=== PATIENT | female | born 1945 | race Caucasian/White ===

== ENCOUNTER 2018-11-26 05:37 | Observation (INO) | payer MEDICARE ==
[~2018-11-26 05:37] MED LIST: Buffered Lidocaine 1% SYRIN* 1 ML/SYRINGE INTRADERM ONE
[2018-11-26] MEDS ORDERED: Famotidine IV* 10 MG/ML 2 ML (20 mg) IV ONE (06:00)
[2018-11-26] MEDS ORDERED: Lactated Ringers 1000 ML Bag* 1,000 ML IV SCH (06:00)
[2018-11-26] MEDS ORDERED: Dexamethasone IV* 4 MG/ML 1 ML (4 MG) IV SLOW PU ONE (06:00)
[2018-11-26] MEDS ORDERED: Buffered Lidocaine 1% SYRIN* 1 ML/SYRINGE INTRADERM ONE (06:14)
[2018-11-26] MEDS ORDERED: Dexamethasone IV* 4 MG/ML 1 ML (4 MG) ONE (06:40)
[2018-11-26] MEDS ORDERED: Famotidine IV* 10 MG/ML 2 ML (20 mg) ONE (06:40)
[2018-11-26] MEDS ORDERED: ceFAZolin 2 GM PREMIX in ORs 2 GM/50 ML BAG ONE (06:40)
[2018-11-26] MEDS ORDERED: Lidocaine 2% PF * 5 ML VIAL ONE (07:05)
[2018-11-26] MEDS ORDERED: Propofol* 10 MG/ML 20 ML BTL ONE (07:05)
[2018-11-26] MEDS ORDERED: Midazolam* 1 MG/ML 2 ML VIAL (2 MG) ONE (07:05)
[2018-11-26] MEDS ORDERED: fentaNYL* 50 MCG/ML 2 ML VIAL (100 MCG VIAL) ONE ×4 (07:06→13:16)
[2018-11-26] MEDS ORDERED: DiMENhydriNATE IV* 50 MG/ML VIAL IV PUSH PRN (07:35)
[2018-11-26] MEDS ORDERED: Naloxone* 0.4 MG/ML 1 ML VIAL IV PRN (07:35)
[2018-11-26] MEDS ORDERED: oxyCODONE/Acetamin 5/325 MG* TAB PO PRN (07:35)
[2018-11-26] MEDS ORDERED: HYDROcodone/ACETAMIN 5-325 MG* 1 TAB PO PRN (07:35)
[2018-11-26] MEDS ORDERED: EPHEDrine (Pressors)* 50 MG/ML VIAL ONE (07:49)
[2018-11-26] MEDS ORDERED: Phenylephrine 40 MCG/ML SYRINGE ONE (07:56)
[2018-11-26] MEDS ORDERED: Lidocaine 1% w EPI 1:100,000* 30 ML VIAL ONE (09:40)
[2018-11-26] MEDS ORDERED: Bupivacaine 0.25% SDV PF* 10 ML VIAL INJ ONE (09:41)
[2018-11-26] MEDS ORDERED: Bupivacaine 0.5% W/EPI SDV* 30 ML VIAL ONE (09:41)
[2018-11-26] MEDS ORDERED: Ondansetron INJ* 2 MG/ML VIAL ONE (10:44)
[2018-11-26] MEDS: fentaNYL* 50 MCG/ML 2 ML VIAL (100 MCG VIAL) IV PRN ×4 (11:51→13:17)
[2018-11-26] MEDS ORDERED: traMADol TAB* 50 MG PO PRN (11:57)
[2018-11-26] MEDS ORDERED: Ondansetron ODT TAB* 4 MG PO PRN (11:57)
[2018-11-26] MEDS ORDERED: Magnesium Hydroxide LIQ* 30 ML UDC PO PRN (11:57)
[2018-11-26] MEDS ORDERED: diPHENhydraMINE PO* 25 MG PO PRN (11:57)
[2018-11-26] MEDS ORDERED: HYDROcodone/ACETAMIN 5-325 MG* 1 TAB ONE (12:26)
--- NOTE | 2018-11-26 13:21 | OP ---
DATE OF OPERATION: 11/26/18 - ROOM #341 DATE OF : 43 SURGEON: Houston Santana MD ENROLLED NURSE: SABI Lopez. An escrow assistant was needed for the entirety of the procedure to aid in positioning of the arm and retraction. ANESTHESIOLOGIST: Dr. Modi. ANESTHESIA: General. 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 OPERATIVE PROCEDURE: 1. Right wrist arthrodesis with both femoral head allograft and iliac crest bone marrow aspirate utilizing Synthes distal radius fusion plate. 2. Removal of right wrist replacement. 3. Excision of distal ulna, right wrist. INDICATIONS: Candace had the wrist replacement put in a couple of decades ago. For the last while, it has been locked with the wrist in position of ulnar deviation and flexion. She really has no motion in the wrist. X-rays show complete erosion of the carpal plate up through the carpus and almost to the subchondral bone near the CMC joint. The radial component looks well fixed. Candace is looking to see if she can get her wrist straighter. Additionally, she has pretty significant wear at the distal ulna, it is very dysmorphic, it is impinging. I talked to her about just excising that as well. She does have rheumatoid arthritis. ESTIMATED BLOOD LOSS: 25 mL. COMPLICATIONS: None. FINDINGS: See above and below. DESCRIPTION OF PROCEDURE: Candace was seen in the preoperative holding area. The correct site, side, and procedures were identified. We came back to the operating room where the arm was prepped and draped in the usual fashion and a time-out was performed. The arm was exsanguinated with the Esmarch and the tourniquet was inflated to 225 mmHg. When we were draping, we had prepped out the iliac crest as well. After tourniquet was inflated, we reopened her prior longitudinal incision over the dorsal wrist. Dissection was carried down. Full thickness flaps were raised off the extensor retinaculum. The extensor retinaculum was opened over the fourth dorsal compartment. The subperiosteal dissection was used to release the fourth, fifth as well as third and second dorsal compartments. The EPL tendon had not been transposed. The tendons were all retracted out of the way. There was metallosis seen in the dorsal wrist capsule. The capsule was opened longitudinally. It took quite some time, but I was able to free up all of the soft tissue off the wrist prosthesis, but using the combination of a knife, rongeur, and the Bovie. The radial component was visualized. The distal component had all advanced up into the carpus and was not seen until I went ahead and nipped back a little rim of the dorsal carpus and I was able to see the poly in the carpal plate. I went ahead and circumferentially released the soft tissue around the proximal component off of the distal radius. The wrist was dislocated. I used the osteotomes, combination of flexible and nonflexible osteotomes to release the bone around the porous coated portion of the metaphyseal portion of the proximal component. This required some loss of the distal radius, but overall we were able to preserve most of it. It took quite some time, but we were able to get it loose and then the component came out uneventfully. After the proximal component came distally, I released the poly off the carpal plate. The two screws were then removed, they were loose. The carpal plate then came out until it was very loose. There was a lot of metallosis. I went ahead and excised all of the metallosis. I then was able to get it sent through the gap that I had. I used the kelsey to remove the very eburnated bone that had been adjacent to the carpal plate. Once I had nice cancellous bone there, I went ahead and brought in my femoral head allograft. I used the large oscillating saw to get the graft close to be in the right size. It was a T- shaped graft with a metaphyseal component proximally. It took quite some time, but once I had it contoured to the right size using a combination of the oscillating saw followed by the smaller sagittal saw and then the rongeur, I was able to impact the T-component of the graft down into the radius and the graft was very stable. I then placed some cancellous graft with a combination of autograft from the distal radius and carpus and then also some of the crushed up cancellous pieces from the femoral head, packed that next to the carpus distally, then I reduced the joint. It was a very nice fit. I brought in my Synthes distal radius fusion plate. I selected the straight plate. I bevelled off the portion of the third metacarpal proximally. I then bent the plate to match the alignment of the bone. Once I had the plate sitting nicely on the bone, I went ahead and decided to harvest some bone marrow. The bone marrow aspiration needle was introduced into the iliac crest in a standard location in the anterior third. I aspirated 10 mL of bone marrow. I irrigated out the wound copiously. I then placed my bone marrow around the graft on all sites and up into the fusion surfaces. An 18-gauge needle was used to assist with this. I then brought in my Synthes fusion plate and secured it with 3 screws distally on the third metacarpal. I then placed three screws proximally sequentially in compression fashion in the radius. This provided a lot of compression across the fusion site. I placed some locking screws proximally, most of the screws distally were locking screws. I brought in my C- arm. I got final fluoroscopic imaging. All the screws looked good. The plate position was good. I was very happy with the clinical alignment. I took what capsule I had dorsally and I closed it with some 4-0 PDS suture. It was in the lot as the wrist had been sitting in quite a distorted position, so when I straightened it out, there was not a lot of capsule left to work with. I did close the retinaculum over the extensor tendons, leaving the EPL tendon transposed. Subcutaneous tissue was reapproximated with 3-0 Vicryl. The skin was closed with 4-0 nylon. 0.25% Marcaine was infiltrated all about the wrist. The wound was dressed with Xeroform, 4x4, sterile Webril and then a wrist plate was applied with both palmar and dorsal slabs. The tourniquet had been deflated during the surgery while I harvested the bone marrow aspirate. It was then kept on through splint placement and then deflated after splint placement, both times the hand pinked up immediately. She was woken up and taken to the recovery room in stable condition. [id number]/CPS #: [id number] HEMAL
[2018-11-26] MEDS: Acetaminophen TAB* 325 MG PO SCH ×2 (14:47→22:15)
[2018-11-26] MEDS: ceFAZolin 2 GM PREMIX in ORs 2 GM/50 ML BAG IVPB SCH (17:20)
[2018-11-26] MEDS ORDERED: Atorvastatin* 40 MG TAB PO SCH (18:00)
[2018-11-26] MEDS: PROCHLORPERAZINE INJ 5 MG/ML 2 ML VIAL IV PRN (18:17)
[2018-11-26] MEDS: Flecainide TAB* 100 MG PO SCH (22:13)
[2018-11-26] MEDS: Gabapentin CAP(*) 300 MG PO SCH (22:13)
[2018-11-26] MEDS: Magnesium Hydroxide LIQ* 30 ML UDC PO SCH (22:14)
[2018-11-26] MEDS: Docusate CAP* 100 MG PO SCH (22:14)
[2018-11-26] MEDS: Metoprolol Succinate XL TAB* 25 MG PO SCH (22:15)
[2018-11-26] MEDS: Potassium Chlor TAB* 10 MEQ TAB.ER PO SCH (22:20)
[2018-11-27] MEDS: ceFAZolin 2 GM PREMIX in ORs 2 GM/50 ML BAG IVPB SCH ×3 (00:22→15:45)
[2018-11-27] MEDS: Acetaminophen TAB* 325 MG PO SCH ×3 (06:03→22:08)
[2018-11-27] MEDS: PROCHLORPERAZINE INJ 5 MG/ML 2 ML VIAL IV PRN ×2 (08:57→19:39)
[2018-11-27] MEDS ORDERED: Levothyroxine TAB* 88 MCG TAB PO SCH (09:00)
[2018-11-27] MEDS: Potassium Chlor TAB* 10 MEQ TAB.ER PO SCH ×2 (10:03→20:50)
[2018-11-27] MEDS: Pantoprazole TAB * 40 MG TAB PO SCH (10:03)
[2018-11-27] MEDS: Flecainide TAB* 100 MG PO SCH ×2 (10:03→20:50)
[2018-11-27] MEDS: Rivaroxaban TAB(*) 20 MG TAB PO SCH (10:03)
[2018-11-27] MEDS: Ferrous Sulfate TAB* 325 MG PO SCH (10:03)
[2018-11-27] MEDS: Torsemide TAB 10 MG PO SCH (10:04)
[2018-11-27] MEDS: Docusate CAP* 100 MG PO SCH ×2 (10:04→20:50)
[2018-11-27] MEDS: CMC: Leflunomide (NF) 10 MG TAB PO SCH (10:04)
[2018-11-27] MEDS: Magnesium Hydroxide LIQ* 30 ML UDC PO SCH ×2 (11:09→20:50)
--- NOTE | 2018-11-27 11:52 | PN ---
Progress Note - Progress Note Date of Service: 11/27/18 SOAP: Subjective: []Pt seen at bedside. She is comfortable at rest, has wrist pain with movement and requests a sling. Denies CP, SOB, dizziness, nausea. Objective: []General: NAD RUE: splint CDI. Able to flex and extend digits, sensation intact to light touch and capillary refill less than two seconds distally. BL LE calves supple and nontender Assessment: [] OPERATIVE PROCEDURE: 1. Right wrist arthrodesis with both femoral head allograft and iliac crest bone marrow aspirate utilizing Synthes distal radius fusion plate. 2. Removal of right wrist replacement. 3. Excision of distal ulna, right wrist. Plan: []NWB RUE Sling given for comfort Work with PT/OT Elevate hand to decrease edema Anticipate DC home tomorrow. Patient lives alone, right hand dominant. Pt is confident she will be able to complete ADLs independently, ensure independence with PT/OT before DC Vital Signs Temp 98.3 F 11/27/18 11:14 Pulse 77 11/27/18 11:14 Resp 18 11/27/18 11:14 BP 111/82 11/27/18 11:14 Pulse Ox 98 11/27/18 11:14 Intake & Output 11/26/18 11/27/18 11/27/18 18:59 06:59 18:59 Intake Total 1750 1080 80 Output Total 1100 700 Balance 650 380 80 Intake: IV Fluids 1550 30 LR 1500 NS 30 NS 50ML, Cefazolin 2G 50 IVPB 50 cefazolin 50 Oral 200 1080 Output: Urine 1100 700 Other: # Bowel Movements 0 Laboratory Last Values Blood Type O Positive 11/26/18 06:30 Antibody Screen Positive 11/26/18 06:30 Antibody Identification Anti-K 11/26/18 06:30 Direct Antiglob Test Negative 11/26/18 06:30 Vital Signs Temp 98.3 F 11/27/18 11:14 Pulse 77 11/27/18 11:14 Resp 18 11/27/18 11:14 BP 111/82 11/27/18 11:14 Pulse Ox 98 11/27/18 11:14 Intake & Output 11/26/18 11/27/18 11/27/18 18:59 06:59 18:59 Intake Total 1750 1080 80 Output Total 1100 700 Balance 650 380 80 Intake: IV Fluids 1550 30 LR 1500 NS 30 NS 50ML, Cefazolin 2G 50 IVPB 50 cefazolin 50 Oral 200 1080 Output: Urine 1100 700 Other: # Bowel Movements 0
--- NOTE | 2018-11-27 16:07 | PN ---
Progress Note - Progress Note Date of Service: 11/27/18 Note: pt was a cat call for an episode of near syncope after standing up on her post op knee for the first time. No LOC/CP/SOB. Neurologically intact. c/o pain in post op knee and left ankle. Exam: AAOx3, anxious, Resp: CTA B/l, CV: RRR no murmur, left post op knee in cryo, good b/l pedal pulses SBP initially at 68, then 98-pt was given 750 ml IVF bolus. GB at 170, EKG pending: A/P Vagal episode in pt post op. will check H&H and cont post op vitals
[2018-11-27] MEDS: Metoprolol Succinate XL TAB* 25 MG PO SCH (20:49)
[2018-11-27] MEDS: Gabapentin CAP(*) 300 MG PO SCH (20:49)
[2018-11-27] MEDS ORDERED: Atorvastatin* 40 MG TAB PO SCH (21:00)
[2018-11-28] MEDS: Acetaminophen TAB* 325 MG PO SCH ×2 (05:38→07:18)
[2018-11-28] MEDS ORDERED: Levothyroxine TAB* 88 MCG TAB PO SCH (06:00)
[2018-11-28] MEDS: Ferrous Sulfate TAB* 325 MG PO SCH (09:25)
[2018-11-28] MEDS: Pantoprazole TAB * 40 MG TAB PO SCH (09:25)
[2018-11-28] MEDS: Flecainide TAB* 100 MG PO SCH (09:25)
[2018-11-28] MEDS: Docusate CAP* 100 MG PO SCH (09:25)
[2018-11-28] MEDS: Rivaroxaban TAB(*) 20 MG TAB PO SCH (09:25)
[2018-11-28] MEDS: Torsemide TAB 10 MG PO SCH (09:25)
[2018-11-28] MEDS: Potassium Chlor TAB* 10 MEQ TAB.ER PO SCH (09:25)
[2018-11-28] MEDS: CMC: Leflunomide (NF) 10 MG TAB PO SCH (09:26)
[2018-11-28] MEDS: Magnesium Hydroxide LIQ* 30 ML UDC PO SCH (09:26)
--- NOTE | 2018-11-28 10:55 | PN ---
Progress Note - Progress Note Date of Service: 11/28/18 SOAP: Subjective: [] Pt seen at bedside. She feels well and desires DC home. She has met her goals with PT, she still needs work with OT. At home the patient fees she will be able to complete her ADLs independently but also confirms she has a life alert, two children to help at any time, a recovery engineer who can also help at any time. She confirms she will have help as much as is needed from friends and family. Denies CP, SOB, dizziness, nausea. RUE pain is much reduced from yesterday. Objective: [] General: NAD RUE: splint CDI. Able to flex and extend digits, weak and limited which she confirms is consistent with preop. sensation intact to light touch and capillary refill less than two seconds distally. BL LE calves supple and nontender Assessment: [] OPERATIVE PROCEDURE: 1. Right wrist arthrodesis with both femoral head allograft and iliac crest bone marrow aspirate utilizing Synthes distal radius fusion plate. 2. Removal of right wrist replacement. 3. Excision of distal ulna, right wrist. Plan: []NWB RUE Sling for comfort Work with PT/OT Elevate hand to decrease edema Anticipate DC home today with help from friends and family Vital Signs Temp 97.7 F 11/28/18 07:13 Pulse 71 11/28/18 07:13 Resp 20 11/28/18 07:38 BP 119/65 11/28/18 07:13 Pulse Ox 96 11/28/18 07:38 Intake & Output 11/27/18 11/28/18 11/28/18 18:59 06:59 18:59 Intake Total 930 900 Output Total 400 Balance 930 500 Intake: IV Fluids 80 NS 30 IVPB 50 cefazolin 50 Oral 800 900 Output: Urine 400 Other: Estimated Void Medium Medium # Voids 1 1 Laboratory Last Values Blood Type O Positive 11/26/18 06:30 Antibody Screen Positive 11/26/18 06:30 Antibody Identification Anti-K 11/26/18 06:30 Direct Antiglob Test Negative 11/26/18 06:30
--- NOTE | 2018-11-28 11:17 | DS ---
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 OPERATIVE PROCEDURE: 1. Right wrist arthrodesis with both femoral head allograft and iliac crest bone marrow aspirate utilizing Synthes distal radius fusion plate. 2. Removal of right wrist replacement. 3. Excision of distal ulna, right wrist. Disposition of Patient: [home ] Condition of Patient: stable History: RONY RIGGINS is a 72 year old F with failed right wrist arthroplasty. Patient elected to undergo a Right wrist arthrodesis with both femoral head allograft and iliac crest bone marrow aspirate utilizing Synthes distal radius fusion plate.2. Removal of right wrist replacement.3. Excision of distal ulna, right wrist. Hospital Course: RONY was admitted to [facility] on 11/26/18. Patient underwent a [ Right wrist arthrodesis with both femoral head allograft and iliac crest bone marrow aspirate utilizing Synthes distal radius fusion plate, Removal of right wrist replacement, Excision of distal ulna, right wrist. without complication followed by a brief recovery in PACU and transfer to the Short Stay Surgical Unit in stable condition. : POD 1 splint CDI. Able to flex and extend digits, weak and limited which she confirms is consistent with preop. sensation intact to light touch and capillary refill less than two seconds distally. POD 2 exam unchanged, deemed stable for discharge to home. Home Medications Medication Instructions Recorded Confirmed Type Ascorbic Acid [Vitamin C] 500 mg PO QAM 11/09/18 11/26/18 History Cholecalciferol (Vitamin D3) 2,000 unit PO QAM 11/09/18 11/26/18 History [Vitamin D3] Cyanocobalamin TAB* [Vitamin B12 1,000 mcg PO DAILY 11/09/18 11/26/18 History TAB*] Ferrous Sulfate 325 mg PO QAM 11/09/18 11/26/18 History Flecainide TAB* [Tambocor TAB*] 1 tab PO BID 11/09/18 11/26/18 History Folic Acid 1 tab PO QAM 11/09/18 11/26/18 History Gabapentin 600 mg PO BEDTIME 11/09/18 11/26/18 History Leflunomide 20 mg PO DAILY 11/09/18 11/26/18 History Levothyroxine TAB* [Synthroid 88 88 mcg PO DAILY 11/09/18 11/26/18 History MCG TAB*] Metoprolol Succinate 25 mg PO BEDTIME 11/09/18 11/26/18 History Multivitamin [Multivitamins] 1 tab PO QAM 11/09/18 11/26/18 History Omeprazole 20 mg PO QAM 11/09/18 11/26/18 History Potassium Chlor TAB* [Klor Con ER 2 tab PO BID 11/09/18 11/26/18 History TAB 10 MEQ*] Rivaroxaban TAB(*) [Xarelto 20 mg] 20 mg PO QAM 11/09/18 11/26/18 History Rosuvastatin Calcium 20 mg PO QPM 11/09/18 11/26/18 History Torsemide TAB* [Demadex 20 MG*] 40 mg PO QAM 11/09/18 11/26/18 History Acetaminophen TAB* [Tylenol TAB*] 975 mg PO Q8HR tab 11/28/18 Rx Docusate CAP* [Colace Cap*] 100 mg PO BID PRN #90 cap 11/28/18 Rx Discharge Instruction Keep splint clean, dry and intact. Do not remove or get wet. Nonweightbearing right hand. Wiggle exposed fingers, elevate hand, use sling for comfort Tylenol for pain control, max of 4000 mg per day Please attend outpatient occupational therapy Please ensure your family members will be available as needed should you need assistance at home. Wear your life alert bracelet at all times If you have any chest pain, shortness of breath go to the emergency room If you have increased pain, redness, fever or chills please call the orthopedic office Make appointment with Dr Santana 10 days post op, call sooner with concerns ) Docusate RX to [facility] [place], no other RX needed
[2018-11-28 11:49] VITALS: BP 100/43
== END 2018-11-28 12:25 | disposition home or self-care (01) ==
LOC: AA 05:37 → INTOOBSV 05:37 → SSU 11:57
PROVIDERS: ADMIT Orthopaedic Surgery Hand Surgery; ATTEND Orthopaedic Surgery Hand Surgery
DX: T84.098A Other mechanical complication of other internal joint prosthesis, initial encounter (principal); M05.731 Rheumatoid arthritis with rheumatoid factor of right wrist without organ or systems involvement; Z79.899 Other long term (current) drug therapy; Z87.891 Personal history of nicotine dependence; M25.531 Pain in right wrist; Z96.631 Presence of right artificial wrist joint; Z91.040 Latex allergy status
CPT/HCPCS: 36415; 76000; 86850; 86870; 86880; 86900; 86901; 88304; 88311; 96374; 96375; A9270-GY; C1713; C1776; G0378; G8978-GP-CI; G8979-GP-CI; G8980-GP-CI; G8987-GO-CK; G8988-GO-CI; J0690; J0780; J1100; J2250; J2405; J2704; J3010; J3490

== ENCOUNTER 2021-06-03 08:38 | Observation (INO) ==
[~2021-06-03 08:38] MED LIST changes: +Buffered Lidocaine 1% SYRIN 1 ml INTRADERM ONE; -Buffered Lidocaine 1% SYRIN* 1 ML/SYRINGE INTRADERM ONE; +Lactated Ringers 1000 ml BAG 1,000 ML IV SCH
[2021-06-03] MEDS ORDERED: fentaNYL 100 mcg/2 ml 50 MCG/ML VIAL ONE ×2 (08:50→10:24)
[2021-06-03] MEDS ORDERED: Midazolam 2 mg/2 ml VIAL 1 mg/ml 2 ml VIAL (2 mg) ONE ×2 (08:50→10:24)
[2021-06-03] MEDS ORDERED: Propofol 10 MG/ML 20 ML BTL ONE ×2 (08:56→10:24)
[2021-06-03] MEDS ORDERED: Ondansetron 4 mg VIAL 2 MG/ML 2 ml VIAL ONE ×2 (08:56→10:24)
[2021-06-03] MEDS ORDERED: Lidocaine 2% PF 5 ML VIAL ONE ×2 (08:56→10:24)
[2021-06-03] MEDS ORDERED: Dexamethasone IV 4 MG/ML VIAL 1 ml VIAL ONE ×2 (08:56→10:24)
[2021-06-03] MEDS ORDERED: ceFAZolin 2 GM PREMIX 2 GM/50 ML BAG ONE (09:12)
[2021-06-03] MEDS ORDERED: Succinylcholine 200 mg VIAL 20 mg/ml 10 ml VIAL (200 mg) ONE (12:04)
[2021-06-03] MEDS ORDERED: Bupivacaine 0.25% SDV 30 ML ONE (12:09)
[2021-06-03] MEDS ORDERED: Naloxone 0.4 mg VIAL 0.4 mg/ml 1 ml VIAL IV PRN (14:17)
[2021-06-03] MEDS ORDERED: Levalbuterol 0.63MG/3ML NEB UNIT OF USE INH PRN (14:17)
[2021-06-03] MEDS ORDERED: fentaNYL 100 mcg/2 ml 50 MCG/ML VIAL IV PRN (14:17)
[2021-06-03] MEDS ORDERED: DiMENhydriNATE IV 50 mg/ml 1 ml VIAL IV PUSH PRN (14:18)
[2021-06-03] MEDS ORDERED: oxyCODONE/Acetamin 5/325 mg TAB PO PRN (14:26)
[2021-06-03] MEDS ORDERED: Morphine 10 MG/ML VIAL (1 ml) IV PRN (14:26)
[2021-06-03] MEDS ORDERED: diPHENhydraMINE 25 mg TAB PO PRN (14:26)
[2021-06-03] MEDS: oxyCODONE/Acetamin 5/325 mg TAB PO PRN ×2 (17:51→22:21)
[2021-06-03] MEDS: Lactated Ringers 1000 ml BAG 1,000 ML IV SCH (17:55)
[2021-06-03 18:05] LABS: ABS Lymphocytes 0.7 10^3/ul (1.0-4.8); ABS Monocytes 0.1 10^3/ul (0-0.8); ABS Neutrophils 2.8 10^3/ul (1.5-7.7); Eosinophil % 0.3 %; Hematocrit 38 % (35-47); Hemoglobin 12.6 g/dL (12.0-16.0); Lymphocyte % 18.8 %; Mean Corpuscular HGB Conc 33 g/dL (31-36); Mean Corpuscular Hemoglobin 28 pg (27-31); Mean Corpuscular Volume 84 fL (80-97); Mean Platelet Volume 8.4 fL (7.4-10.4); Platelet Count 159 10^3/uL (150-450); Red Blood Count 4.51 10^6 /uL (3.70-4.87); Red Cell Distribution Width 15 % (10-15); White Blood Count 3.6 10^3/uL (3.5-10.8)
[2021-06-03 18:23] LABS: Albumin/Globulin Ratio 1.4 (1-3); Calcium 9.2 mg/dL (8.6-10.3); Globulin 2.9 g/dL (2-4); Potassium 3.8 mmol/L (3.5-5.0); Total Bilirubin 0.5 mg/dL (0.2-1.0); Total Protein 6.9 g/dL (6.4-8.9); eGFR CKD-EPI 92.6 (>60)
[2021-06-03] MEDS ORDERED: Magnesium Hydroxide LIQ 30 ML UDC PO PRN (18:53)
[2021-06-03] MEDS: ceFAZolin 1 GM X 3 DOSES POST-OP Q8H (AddVan) IVPB SCH (22:07)
[2021-06-04] MEDS: ceFAZolin 1 GM X 3 DOSES POST-OP Q8H (AddVan) IVPB SCH ×2 (05:02→15:10)
[2021-06-04 06:01] LABS: Calcium 8.8 mg/dL (8.6-10.3); Magnesium 1.9 mg/dL (1.9-2.7); Potassium 3.7 mmol/L (3.5-5.0)
[2021-06-04 06:06] LABS: eGFR CKD-EPI 83.8 (>60)
[2021-06-04] MEDS ORDERED: Ondansetron 4 mg VIAL 2 MG/ML 2 ml VIAL ONE (08:52)
[2021-06-04] MEDS ORDERED: Ondansetron 4 mg VIAL 2 MG/ML 2 ml VIAL IV PRN (08:53)
[2021-06-04] MEDS: Potassium Chlor 10 meq TAB PO SCH (10:18)
[2021-06-04] MEDS: Cholecalciferol (VIT D3) 1,000 unit TAB PO SCH (10:19)
[2021-06-04] MEDS: Artificial Tear OPHTH.OINT 3.5 GM BOTH EYES SCH (10:19)
[2021-06-04] MEDS: Fluticasone NASAL SPRAY 50MCG 16 gm SPRAY BTL INTRANASAL SCH (10:20)
[2021-06-04] MEDS: LEFLUNOMIDE 10 MG PO SCH (10:20)
[2021-06-04] MEDS ORDERED: Al Hydrox/Mg Hydrox/Simet LIQ 30 ML UDC PO PRN (10:51)
[2021-06-04] MEDS ORDERED: Prochlorperazine 5 mg/ml 2 ml VIAL (10 mg) IV PRN (10:54)
[2021-06-04] MEDS ORDERED: Lactated Ringers 500 ml BAG 500 ML IV ONE (11:48)
[2021-06-04] MEDS ORDERED: Buffered Lidocaine 1% SYRIN 1 ml INTRADERM ONE (13:00)
[2021-06-04] MEDS: Lactated Ringers 1000 ml BAG 1,000 ML IV SCH (23:52)
[2021-06-05 07:41] VITALS: BP 128/68
[2021-06-05] MEDS: Artificial Tear OPHTH.OINT 3.5 GM BOTH EYES SCH (09:40)
[2021-06-05] MEDS: LEFLUNOMIDE 10 MG PO SCH (09:41)
[2021-06-05] MEDS: Cholecalciferol (VIT D3) 1,000 unit TAB PO SCH (09:42)
[2021-06-05] MEDS: Potassium Chlor 10 meq TAB PO SCH (09:42)
[2021-06-05] MEDS: Fluticasone NASAL SPRAY 50MCG 16 gm SPRAY BTL INTRANASAL SCH (09:48)
== END 2021-06-05 11:46 | disposition home or self-care (01) ==
LOC: OR 08:38 → SSU 08:38
PROVIDERS: ADMIT Orthopaedic Surgery Hand Surgery; ATTEND Orthopaedic Surgery Hand Surgery